=== PATIENT | female | born 1995 | race Caucasian/White ===

== ENCOUNTER 2023-03-08 01:04 | Emergency (ER) | payer SELFPAY ==
[2023-03-08] MEDS ORDERED: IBUPROFEN 400 MG TAB ONE (01:37)
[2023-03-08] MEDS ORDERED: IBUPROFEN 200 MG TAB PO ONE (01:37)
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
[2023-03-08 05:08] VITALS: TEMP 99.1
[2023-03-08 05:09] VITALS: BP 115/79; O2SAT 100
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
== END 2023-03-08 04:59 | disposition home or self-care (01) ==
LOC: ER 01:04
PROC: 2W3CX1Z Immobilization of Right Lower Arm using Splint (ICD-10-PCS; principal; 2023-03-08)
DX: S52.251A Displaced comminuted fracture of shaft of ulna, right arm, initial encounter for closed fracture (principal); M25.571 Pain in right ankle and joints of right foot; V59.59XA Passenger in pick-up truck or van injured in collision with other motor vehicles in traffic accident, initial encounter
CPT/HCPCS: 70450; 71045; 72125; 99284